=== PATIENT | female | born 1985 | race Caucasian/White ===

== ENCOUNTER 2020-07-24 10:30 | Emergency (ER) | payer MEDICAID, SELFPAY ==
[2020-07-24 10:58] VITALS: BP 99/60; PULSE 95; RESP 20; TEMP 37.1; O2SAT 100; BMI 24.2
[2020-07-24 11:19] VITALS: BP 108/71; PULSE 82; RESP 20; O2SAT 98
--- NOTE | 2020-07-24 11:40 | XR_ITS ---
EXAMINATION: XR CHEST CLINICAL INFORMATION: Asthma exacerbation COMPARISON: Previous chest x-ray most recent May 2019 TECHNIQUE: Frontal view of the chest was obtained. FINDINGS: No significant abnormality is noted involving the heart, lungs, mediastinum, bony thorax or soft tissues. XR/XR chest 1V IMPRESSION: Unremarkable examination.
--- NOTE | 2020-07-24 11:48 | ED_ITS ---
HPI - Asthma General Chief Complaint: Asthma Stated Complaint: asthma Time Seen by Provider: 07/24/20 11:30 Source: patient Mode of arrival: ambulatory Limitations: no limitations History of Present Illness HPI Narrative: 35 y/o female with history of moderate asthma presents with SOB and lung pain since yesterday. She states she has had increased in her asthma symptoms over the past 2-3 days and has been using her inhalers as prescribed. She states yesterday after using perfume she started having the pain in her back left lung along with increase cough. Cough is productive of clear phlegm. When she gets into a coughing fit she has vomited a few times. Denies fever, chills, nausea, abdominal pain, chest pain, nasal congestion. No known exposure to COVID-19. Up to date on flu shot this year. MD complaint: asthma attack and shortness of breath Onset (ago): day(s) (2) Severity: moderate Context: other Associated symptoms: productive cough Asthma History: adult onset Treatments Prior to Arrival: inhaled bronchodilator Related Data Current Asthma Therapy: inhaled bronchodilator and inhaled steroid Previous Rx's Medication Instructions Recorded ipratropium-albuterol 3 ml INHALATION Q6-8H PRN #15 ml 07/24/20 prednisone 40 mg PO DAILY #10 tab 07/24/20 Allergies Allergy/AdvReac Type Severity Reaction Status Date / Time morphine [MORPHINE] Allergy Severe DIFFICULTY Verified 07/24/20 11:03 BREATHING Penicillins [PENICILLINS] Allergy Severe DIFFICULTY Verified 07/24/20 11:03 BREATHING Review of Systems Review of Systems: Constitutional: No Fever, No Chills ENT/Mouth: No sore throat, No Rhinorrhea, No Swallowing Difficulty Eyes: No Eye Pain, No Swelling, No Redness Cardiovascular: No Chest Pain, + SOB, No Orthopnea, No Edema Respiratory: + Cough, + Sputum, + Wheezing, + dyspnea Gastrointestinal: No Nausea, + Vomiting, No Diarrhea, No abdominal Pain Genitourinary: No Dysuria, No Urinary Frequency, No Hematuria Musculoskeletal: No joint pain, No Myalgias Skin: No Skin Lesions, No rash Neuro: + Weakness, No Numbness, No Dizziness, No Headache Psych: N+ Anxiety/Panic, No Depression Heme/Lymph: No Bruising, No Lymphadenopathy PMFSH Past Medical History Attestation statement: The following information was validated with the patient. Medical History Anxiety Asthma Bipolar 1 disorder Depression Social History Social History Alcohol intake: never Smoking Status: Never smoker Use of substances other than those prescribed or required for medical reasons: No Advance Directives: No Advance Directives Information Provided: Yes Physical Exam Vital Signs: Vital Signs: Last Vital Signs Temp 98.7 F 07/24/20 10:58 Pulse 107 H 07/24/20 12:17 Resp 20 07/24/20 11:19 BP 108/71 07/24/20 11:19 Pulse Ox 98 07/24/20 11:19 Body Mass Index 24.2 Appearance: Alert. Oriented X3. Appears uncomfortable. Eyes: Pupils equal, round and reactive to light. ENT: Pharynx normal. Neck: Normal inspection. Neck supple. CVS: Normal heart rate and rhythm. Pulses normal. Respiratory: poor inspiraotry effort, shallow breaths, lung sounds mildly coarse, no overt wheezing or rhonchi Abdomen: Soft and nontender. +BS x4 Skin: Skin warm and dry. Normal skin color. Normal skin turgor. No rashes. Extremities: No lower extremity edema. Negative Jeb's signs Neuro: Oriented X 3. non-focal Course Course Course Narrative: 35 y/o female with history of asthma presenting with pleurisy and SOB after using perfume yesterday. Concern for acute asthma exacerbation, although no overt wheezing on exam. Given her history and known irritant exp osure, will give dose of IV steroids and nebulizer here along with Mg++. Vital signs stable, SpO2 100%. CXR and labs pending. 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 Reevaluation(s) Reevaluation #1: CXR negative. Ddimer 232, Wells score for PE 0. Low suspicion f or PE at this time. She feels much better after neb and steroids. She is stable for discharge with treatment for acute asthma exacerbation. MDM - Asthma Differential Diagnosis Differential diagnosis: Likely Acute exacerbation, Status asthmaticus, Acute asthmatic bronchitis, PE, Pneumonia and COPD exacerbation Medical Records Attestation: I reviewed the patient's medical records. Lab Data Attestation: I reviewed the patient's lab results. Result diagrams: 07/24/20 11:50 07/24/20 11:50 Labs: Lab Results 07/24/20 07/24/20 07/24/20 Range/Units 11:50 11:50 11:50 WBC 5.1 (4.8-10.8) X10*3/uL RBC 4.13 L (4.20-5.50) X10*6/uL Hgb 12.0 (12.0-16.0) g/dl Hct 35.4 L (37-47) % MCV 85.7 (80-98) fL MCH 29.1 (27.0-33.0) pg MCHC 33.9 (31.0-35.0) g/dl RDW 13.3 (11.0-16.0) % Plt Count 249 (160-400) X10*3/uL MPV 9.5 (9.4-12.3) fL Immature Gran % (Auto) 0.6 H (0.0-0.4) % Neut % (Auto) 55.2 (45-73) % Lymph % (Auto) 30.7 (20-40) % Ness % (Auto) 10.9 (2-11) % Eos % (Auto) 2.0 (0-4) % Baso % (Auto) 0.6 (0-2) % Lymph # (Auto) 1.6 (1.2-4.9) X10*3/uL Ness # (Auto) 0.6 (0.1-1.2) X10*3/uL Eos # (Auto) 0.1 (0.0-0.4) X10*3/uL Baso # (Auto) 0.0 (0.0-0.2) X10*3/uL Abs Immat Gran (auto) 0.03 (0.00-0.03) X10*3/uL Absolute Neuts (auto) 2.8 (2.0-8.3) X10*3/uL Absolute Nucleated RBC 0.000 (0.0-0.012) X10*3/uL Nucleated RBC % (auto) 0.0 (0.0-0.2) /100WBC D-Dimer 232 NG/ML Sodium 140 (135-145) mmol/L Potassium 3.8 (3.3-5.1) mmol/l Chloride 108 (96-108) mmol/L Carbon Dioxide 24 (22-29) mmol/L Anion Gap 12 (12-20) BUN 10 (9-16) mg/dL Creatinine 0.76 (0.5-1.4) mg/dL Estim Creat Clear Calc 73.6 Estimated GFR > 60 Random Glucose 83 (60-115) mg/dL Calcium 8.8 (8.4-10.2) mg/dL Critical Care Time Critical Care Time Critical Care Time: No Discharge Plan Discharge Clinical Impression: Asthma with acute exacerbation Qualifiers: Asthma severity: moderate Asthma persistence: persistent Qualified Code(s): J45.41 - Moderate persistent asthma with (acute) exacerbation Patient Disposition: Home, Self-Care Instructions: Asthma (ED) Additional Instructions: Your chest x-ray today was normal. It is likely your asthma exacerbation was caused by using perfume - do not use irritants like perfume or harsh cleaning products that can make asthma worse. Follow up with your Pulmonary doctor. If you develop difficulty breathing, worsening respiratory symptoms or chest pain call 911 or come back to the ER for further evalution. Prescriptions: New prednisone 20 mg tablet 40 mg PO DAILY Qty: 10 RF: 0 ipratropium-albuterol 0.5 mg-3 mg(2.5 mg base)/3 mL solution for nebulization 3 ml inhalation Q6-8H PRN (Reason: shortness of breath or wheezing) Qty: 15 RF: 0
[2020-07-24] MEDS: Magnesium Sulfate/H2O 2 GM/50 ML PIGGYBACK IV (11:53)
[2020-07-24] MEDS: methylPREDNISolone Sod Succ/PF 125 MG/2 ML VIAL 80 MG IVPUSH (11:53)
--- NOTE | 2020-07-24 12:02 | PC.NURSE ---
Patient arrives complaining of asthma exacerbation. Reports feeling SOB and coughing for past few days. Describes lungs as feeling painful. Patient tried inhalor and nebulizer at home with minimal relief. Lung sounds slightly diminished in lower lobes but no wheezing noted. Respirations appear regular and even. Patient appears uncomfortable when trying to take a deep breath. Skin PWD. IV established and labs drawn. Patient tolerated well. Hung magnesium and medicated with Solumedrol. 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
[2020-07-24 12:04] LABS: Basophils Percent Auto 0.6 % (0-2); Eosinophils Absolute Auto 0.1 X10*3/uL (0.0-0.4); Hematocrit 35.4 % (37-47); Imm Gran Abs Auto 0.03 X10*3/uL (0.00-0.03); Imm Gran Pct Auto 0.6 % (0.0-0.4); Lymphocytes Absolute Auto 1.6 X10*3/uL (1.2-4.9); Lymphocytes Percent Auto 30.7 % (20-40); MANUAL DIFF FLAG NO; Mean Corpuscular HGB Conc 33.9 g/dl (31.0-35.0); Mean Corpuscular Hemoglobin 29.1 pg (27.0-33.0); Mean Corpuscular Volume 85.7 fL (80-98); Mean Platelet Volume 9.5 fL (9.4-12.3); Monocytes Absolute Auto 0.6 X10*3/uL (0.1-1.2); Monocytes Percent Auto 10.9 % (2-11); Neutrophils Absolute Auto 2.8 X10*3/uL (2.0-8.3); Neutrophils Percent Auto 55.2 % (45-73); Platelet Count 249 X10*3/uL (160-400); Red Blood Count 4.13 X10*6/uL (4.20-5.50); Red Cell Distribution Width 13.3 % (11.0-16.0); White Blood Count 5.1 X10*3/uL (4.8-10.8)
[2020-07-24 12:12] LABS: D Dimer 232 NG/ML
[2020-07-24] MEDS: Albuterol/Iprat 2.5/0.5MG 3 ML AMPUL.NEB INHALE (12:16)
[2020-07-24 12:17] VITALS: PULSE 107; O2SAT 97
[2020-07-24 12:32] LABS: Anion Gap 12 (12-20); Blood Urea Nitrogen 10 mg/dL (9-16); Calcium 8.8 mg/dL (8.4-10.2); Carbon Dioxide 24 mmol/L (22-29); Chloride 108 mmol/L (96-108); Creatinine Clr Calc Pharmacy 73.6; Estimated Glomerular Filt Rate > 60; Glucose Random 83 mg/dL (60-115); Potassium 3.8 mmol/l (3.3-5.1); Sodium 140 mmol/L (135-145)
[2020-07-24 13:57] VITALS: BP 102/62; PULSE 75; RESP 18; O2SAT 98
== END 2020-07-24 14:00 | disposition home or self-care (01) ==
PROVIDERS: Physician Assistant; Emergency Provider Emergency Medicine Emergency Medical Services; PCP Nurse Practitioner Family
DX: J45.41 Moderate persistent asthma with (acute) exacerbation (principal); R05 Cough; Z79.899 Other long term (current) drug therapy
CPT/HCPCS: 36415; 71045; 80048; 85025; 85379; 94640; 96365; 96366; 96375; 99284; J2930; J3475

== ENCOUNTER → 2020-09-06 10:29 | Outpatient (BNVA) | payer MEDICAID, SELFPAY | PROVIDERS: PCP Nurse Practitioner Family; Visit Provider Physician Assistant | DX: Z76.89 Persons encountering health services in other specified circumstances (principal) ==

== ENCOUNTER → 2020-10-23 08:05 | Outpatient (BNVA) | payer MEDICAID, SELFPAY | PROVIDERS: PCP Nurse Practitioner Family; Visit Provider Physician Assistant ==

== ENCOUNTER 2023-03-06 12:46 | Outpatient (REF) | payer MEDICAID, SELFPAY | END 2023-03-06 12:47 | disposition home or self-care (01) | LOC: HO.MRI 12:46 | PROVIDERS: PCP Nurse Practitioner Primary Care; Visit Provider Nurse Practitioner Primary Care | DX: G44.52 New daily persistent headache (NDPH) (principal) | CPT/HCPCS: 70553; A9585 ==